=== PATIENT | male | born 1955 | race Caucasian/White ===

== ENCOUNTER 2025-05-31 18:55 | Emergency (ER) | payer MEDICARE, MEDICAID, SELFPAY ==
[2025-05-31] VITALS (15 sets, daily range): BP systolic 129–181; BP diastolic 79–118; PULSE 65–77; RESP 13–18; TEMP 36.8; O2SAT 95–99
--- NOTE | ~2025-05-31 | CT_ITS ---
EXAMINATION: CT brain kvng lei, 05/31/2025 20:05 CDT HISTORY: frequent falls, dysequilibrium COMPARISON: No comparisons available. Technique: Axial images obtained of the brain without contrast. One or more of the following dose reduction techniques were used: automated exposure control, adjustment of the mA and/or kV according to patient size, use of iterative reconstruction technique. Findings: No acute infarct or parenchymal hemorrhage. No abnormal mass or mass effect. No midline shift. No extra-axial fluid collections. No hydrocephalus. Mastoid air cells unremarkable. Sinuses and orbits unremarkable. No acute fracture. No significant facial or scalp soft tissue swelling evident. No radiopaque foreign body is seen. Impression: 1.No acute intracranial abnormality. Reviewed, dictated and finalized at location A. Impression: 1.No acute intracranial abnormality.
--- NOTE | ~2025-05-31 | CT_ITS ---
EXAMINATION: CT cervical spine wo quique, 05/31/2025 20:10 CDT HISTORY: neck pain AFTER FALL. COMPARISON: No comparisons available. Technique: Axial images were obtained of the spine per protocol. One or more of the following dose reduction techniques were used: automated exposure control, adjustment of the mA and/or kV according to patient size, use of iterative reconstruction technique. Unless otherwise stated, incidental findings do not require dedicated follow up imaging Findings: Grade 1 anterolisthesis of C3 on C4 and C4-C5, no fracture is identified. Severe loss of disc height at C2-3, C5-6 and C6-7 with moderate to severe canal and foraminal stenoses, outpatient MRI is recommended. Soft tissues unremarkable Impression: No acute abnormality. Reviewed, dictated and finalized at location A. Impression: No acute abnormality.
--- NOTE | ~2025-05-31 | XR_ITS ---
EXAMINATION: XR shoulder LT min 2V DATE: 05/31/2025 20:23 INDICATION: Superior left shoulder pain after fall TECHNIQUE: 5 images of the left shoulder were obtained COMPARISON: None FINDINGS: Normal alignment. No fracture. Glenohumeral joint is normal. Soft tissue swelling about the left shoulder. Questionable mild left AC separation. IMPRESSION: 1. No fracture. No dislocation of the left humeral head. Questionable mild left AC separation. Soft tissue swelling about the left shoulder. If symptoms persist or worsen, consider a short-term follow-up study or additional imaging for further assessment. Reviewed, dictated and finalized at location Q. IMPRESSION: 1. No fracture. No dislocation of the left humeral head. Questionable mild left AC separation. Soft tissue swelling about the left shoulder. If symptoms persist or worsen, consider a short-term follow-up study or additio nal imaging for further assessment.
--- NOTE | 2025-05-31 19:50 | ECG_ITS ---
Test Date: 2025-05-31 20:37:56 Measurements Intervals [place] Rate: 67 P: 79 WV: 137 QRS: 72 QRSD: 94 T: 81 QT: 399 QTc: 422 Interpretive Statements SINUS RHYTHM MODERATE VOLTAGE CRITERIA FOR LVH, CONSIDER NORMAL VARIANT [MEETS CRITERIA IN ONE OF: R(aVL), S(V1), R(V5), R(V5/V6)+S(V1)] No previous ECG available for comparison Electronically Signed On 06-01-2025 10:30:39 CDT by [place] De La Garza M.D.
--- NOTE | 2025-05-31 19:51 | ED_ITS ---
HPI - General Adult General Chief complaint: Fall Stated complaint: frequent falls Time Seen by Provider: 05/31/25 19:00 History of Present Illness HPI narrative: Taye is a 70M with a PMH of homelessness that presented to the ED with over a week of frequent falls. He feels off balance with a wide based gait and keeps falling. He has hit his head and shoulder multiple times. He denies any N/V, diarrhea, decreased PO intake, dyspnea or palpitations. Related Data Allergies Allergy/AdvReac Type Severity Reaction Status Date / Time No Known Allergies Allergy Verified 05/31/25 19:10 Review of Systems 2 Review of Systems: All systems reviewed & are unremarkable except as noted in HPI and below Exam 2 Narrative: Ordered labs, CT, and radiographs of the left shoulder. He declined pain meds. Const: General: cooperative, healthy appearing, comfortable, no acute distress, well developed, alert, awake and Physically active O rientation/consciousness: oriented to person, oriented to place and oriented to time Other: underweight HENMT: Head: normal to inspection, normocephalic and atraumatic Ears: h earing grossly normal bilaterally and external ears normal Face/Nose/Sinus: N ormal external nose present Eyes: General: appearance normal, both eyes and all related structures P eriorbital: periorbital findings normal Sclera: sclerae normal Pupils: E qual, round and reactive pupils present Neck: Neck: normal visual inspection Chest: Chest palpation & inspection: normal inspection of the chest Resp: Effort & Inspection: normal respiratory effort, able to speak in complete sentences and no respiratory distress Auscultation: clear to auscultation bilaterally Cardio: Jugular venous distension: no JVD Rate: regular rate Rhythm: r egular rhythm GI: Inspection: normal to inspection GI Palp: Yes Soft to palpation A uscultation: normal bowel sounds Skin: General skin exam: normal color and no rashes or lesions noted Neuro: General: oriented to person, oriented to place and oriented to time Cranial nerves: Yes Equal, round and reactive pupils present Other: HINTS exam: vertical nystagmus and eye correction Extrem: General: normal to inspection Course Course Emergency Course: Ordered CT brain, cervical spine and shoulder radiographs as well as labs and EKG EKG showed NSR with a rate of 67, normal axis, and no ST elevation/depression but did show LVH Labs largely unremarkable with the exception of a mildly elevated TSH. CT head -No acute intracranial abnormality CT C-Spine -No acute C-spine finding -Periodontal disease No acute cause was found for his dysequqlibrium. I recommended he f/u with his PCP for further workup and treatment. Vital Signs Vital signs: Vital Signs Temperature 98.3 F 05/31/25 18:55 Pulse Rate 76 05/31/25 18:55 Respiratory Rate 18 05/31/25 18:55 Blood Pressure 171/85 H 05/31/25 18:55 Pulse Oximetry 98 05/31/25 18:55 Temperature 98.3 F 05/31/25 18:55 Pulse Rate 73 05/31/25 22:31 Respiratory Rate 18 05/31/25 22:31 Blood Pressure 150/86 H 05/31/25 22:31 Pulse Oximetry 97 05/31/25 22:31 Oxygen Delivery Room Air 05/31/25 22:31 Medical Decision Making Vital Signs Vital Signs: Vital Signs Temperature 98.3 F 05/31/25 18:55 Pulse Rate 76 05/31/25 18:55 Respiratory Rate 18 05/31/25 18:55 Blood Pressure 171/85 H 05/31/25 18:55 Pulse Oximetry 98 05/31/25 18:55 Temperature 98.3 F 05/31/25 18:55 Pulse Rate 73 05/31/25 22:31 Respiratory Rate 18 05/31/25 22:31 Blood Pressure 150/86 H 05/31/25 22:31 Pulse Oximetry 97 05/31/25 22:31 Oxygen Delivery Room Air 05/31/25 22:31 Lab Data 05/31/25 20:40 05/31/25 20:40 Labs: Lab Results 05/31/25 05/31/25 Range/Units 20:04 20:40 WBC 10.0 (4.8-10.8) K/mm3 RBC 4.34 L (4.70-6.10) M/mm3 Hgb 12.9 (12.4-15.3) g/dL Hct 38.7 (37.0-46.0) % MCV 89.2 (78.0-102.0) fL MCH 29.7 (27.0-31.0) pg MCHC 33.3 (32-36) g/dL RDW 13.2 (11.6-14.4) % Plt Count 756 H (150-420) K/mm3 MPV 9.2 (8.7-11.0) fl Immature Gran % (Auto) 0.5 H (0.0-0.0) % Neut % (Auto) 75.2 H (50.0-70.0) % Lymph % (Auto) 12.4 L (18.0-42.0) % [place] % (Auto) 9.3 (2.0-11.0) % Eos % (Auto) 1.8 (1.0-6.0) % Baso % (Auto) 0.8 (0.0-1.0) % Lymph # (Auto) 1.24 (1.10-4.50) K/mm3 [place] # (Auto) 0.93 H (0.10-0.90) K/mm3 Eos # (Auto) 0.18 (0.02-0.50) K/mm3 Baso # (Auto) 0.08 (0.00-0.10) K/mm3 Abs Immat Gran (auto) 0.05 H (0.00-0.00) K/mm3 Absolute Neuts (auto) 7.53 H (1.70-7.20) K/mm3 Absolute Nucleated RBC 0.00 (0.00-0.00) K/mm3 Nucleated RBC % 0.0 (0-0.0) % % Immature Plt Fraction 1.3 (1.0-7.0) % Sodium 138 (137-145) mmol/L Potassium 4.6 (3.4-5.0) mmol/L Chloride 99 (98-107) mmol/L Carbon Dioxide 28 (22-30) mmol/L Anion Gap 11 (4-12) mmol/L BUN 21 H (9-20) mg/dL Creatinine 0.96 (0.7-1.3) mg/dL Estim Creat Clear Calc 59 ml/min Estimated GFR > 60 (59 - ) Glucose 101 (65-110) mg/dL Calculated Osmolality 289 (285-295) mOsm/kg Calcium 10.4 H (8.4-10.2) mg/dL Magnesium 2.0 (1.6-2.3) mg/dL Total Bilirubin 0.6 (0.2-1.3) mg/dL AST 38 (17-59) U/L ALT 22 (6-50) U/L Alkaline Phosphatase 88 (38-126) U/L Troponin I < 0.012 (0.000-0.034) ng/mL C-Reactive Protein 1.4 H (<1.0) mg/dL Total Protein 8.7 H (6.3-8.2) g/dL Albumin 4.7 (3.5-5.1) g/dL TSH 7.800 H (0.465-4.680) uIU/mL Urine Color Light yellow (Yellow) Urine Appearance Clear (Clear) Urine pH 6.5 (5.0-8.0) Ur Specific [place] 1.015 (1.010-1.020) Urine Protein Negative (Negative) Urine Glucose (UA) Negative (Negative) Urine Ketones Negative (Negative) Ur Blood (Man) Negative (Negative) Urine Nitrate Negative (Negative) Urine Bilirubin Negative (Negative) Urine Urobilinogen 0.2 (0.2-1.0) mg/dL Leukocyte Esterase Rfl Negative (Negative) EARL/UL Urine Opiates Screen Negative (Negative) Urine Methadone Screen Negative (Negative) Ur Barbiturates Screen Negative (Negative) Ur Phencyclidine Scrn Negative (Negative) Ur Amphetamine Screen Negative (Negative) U Benzodiazepines Scrn Negative (Negative) Urine Cocaine Screen Negative (Negative) U Cannabinoids Screen Positive A (Negative) Ethyl Alcohol < 10 (<10) mg/dL Discharge Plan Discharge Clinical Impression: Frequent falls Patient Disposition: Home Condition: Stable Instructions: Fall Prevention (ED) Additional Instructions: Please follow up with your regular provider for further workup. Your thyroid was a bit low and will need followed up on as well. Patient Language: Arabic Follow-up/Referrals: Mirtha Mayfield PA [Primary Care Provider, Orthopedics]
--- NOTE | 2025-05-31 20:00 | PC.NURSE ---
RESTING QUIETLY ON STRETCHER. NO NEEDS VOICED AT THIS TIME. CALL LIGHT IN REACH
--- NOTE | 2025-05-31 20:02 | PC.NURSE ---
LAB AT THE BEDSIDE
--- NOTE | 2025-05-31 20:18 | PC.NURSE ---
RESTING QUIETLY ON STRETCHER. NO NEEDS VOICED AT THIS TIME.
[2025-05-31 20:57] LABS: Hematocrit 38.7 % (37.0-46.0); Hemoglobin 12.9 g/dL (12.4-15.3); Immature Granulocyte Percent A 0.5 % (0.0-0.0); Immature Platelet Fraction Pct 1.3 % (1.0-7.0); Lymphocytes Absolute Auto 1.24 K/mm3 (1.10-4.50); Mean Corpuscular HGB Conc 33.3 g/dL (32-36); Mean Corpuscular Hemoglobin 29.7 pg (27.0-31.0); Mean Corpuscular Volume 89.2 fL (78.0-102.0); Nucleated Red Blood Cells Absolute Auto 0.00 K/mm3 (0.00-0.00); Nucleated Red Blood Cells Perc 0.0 % (0-0.0); Platelet Count Result 756 K/mm3 (150-420); Red Blood Count 4.34 M/mm3 (4.70-6.10); White Blood Count 10.0 K/mm3 (4.8-10.8)
--- NOTE | 2025-05-31 21:00 | PC.NURSE ---
PATIENT RESTING ON STRETCHER. CALL LIGHT IN REACH. NO NEEDS VOICED.
[2025-05-31 21:03] LABS: Add Urine Microscopic? NO; Appearance Urine Clear (Clear); Glucose Urine UA Negative (Negative); Leukocyte Esterase Ur Negative LEU/UL (Negative); Nitrate Urine Negative (Negative); Specific Grav Ur 1.015 (1.010-1.020)
[2025-05-31 21:03] LABS: Alanine Aminotransferase 22 U/L (6-50); Albumin Level 4.7 g/dL (3.5-5.1); Alkaline Phosphatase 88 U/L (38-126); Anion Gap 11 mmol/L (4-12); Aspartate Amino Transferase 38 U/L (17-59); Bilirubin,Total 0.6 mg/dL (0.2-1.3); Blood Urea Nitrogen 21 mg/dL (9-20); CRP 1.4 mg/dL (<1.0); Calcium 10.4 mg/dL (8.4-10.2); Carbon Dioxide 28 mmol/L (22-30); Chloride 99 mmol/L (98-107); Estimated CRCL calculation 59 ml/min; Estimated Glomerular Filt Rate > 60; Glucose 101 mg/dL (65-110); Magnesium 2.0 mg/dL (1.6-2.3); Osmolality Calculated 289 mOsm/kg (285-295); Potassium 4.6 mmol/L (3.4-5.0); Sodium 138 mmol/L (137-145); Total Protein 8.7 g/dL (6.3-8.2)
[2025-05-31 21:11] LABS: Troponin I < 0.012 ng/mL (0.000-0.034)
[2025-05-31 21:30] LABS: Cannabinoid Screen Urine Positive (Negative)
[2025-05-31 21:36] LABS: Thyroid Stimulating Hormone 7.800 uIU/mL (0.465-4.680)
--- NOTE | 2025-05-31 23:07 | PC.NURSE ---
ATTEMPTED TO CALL [facility] FOR PATIENT. NO ANSWER AT THIS TIME
== END 2025-05-31 22:47 | disposition home or self-care (01) ==
PROVIDERS: Emergency Provider Family Medicine; PCP Physician Assistant Surgical
DX: S09.90XA Unspecified injury of head, initial encounter (principal); S49.92XA Unspecified injury of left shoulder and upper arm, initial encounter; W19.XXXA Unspecified fall, initial encounter; E03.9 Hypothyroidism, unspecified; Z91.81 History of falling
CPT/HCPCS: 36415; 70450; 72125; 73030; 80053; 80307; 81003; 82077; 83735; 84443; 84484; 85025; 85055; 86140; 93005; 99284

== ENCOUNTER 2025-06-06 23:01 | Emergency (ER) | payer MEDICARE, SELFPAY ==
--- NOTE | ~2025-06-06 | XR_ITS ---
EXAMINATION: XR_RIBSBICXR1_CR, 06/06/2025 23:32 CDT HISTORY: Frequent falls, rib pain worse on left COMPARISON: No comparisons available. Findings: No acute fracture or malalignment. No significant degenerative changes. Soft tissues unremarkable. Impression: No acute fracture or malalignment. Reviewed, dictated and finalized at location A. Impression: No acute fracture or malalignment.
--- NOTE | ~2025-06-06 | XR_ITS ---
EXAMINATION: XR shoulder LT min 2V, 06/06/2025 23:32 CDT HISTORY: LEFT SHOULDER PAIN COMPARISON: No comparisons available. Findings: No acute fracture or malalignment. No significant degenerative changes. Soft tissues unremarkable. Impression: No acute fracture or malalignment. Reviewed, dictated and finalized at location A. Impression: No acute fracture or malalignment.
[2025-06-06 23:04] VITALS: BP 153/83; PULSE 92; RESP 20; TEMP 36.6; O2SAT 99
[2025-06-07 01:28] VITALS: BP 157/113; PULSE 84; RESP 18; O2SAT 96
--- NOTE | 2025-06-07 02:52 | ED_ITS ---
HPI - Fall General Chief Complaint: Fall Stated Complaint: Frequent falls, L rib pain Time Seen by Provider: 06/07/25 02:45 History of Present Illness HPI Narrative: Patient is a 70-year-old male who presents emergency department this evening complaining of left-sided rib pain. Patient states that a couple days ago he fell and landed days left side he does have some bruising to the left anterior chest. Patient is concerned that he may have a pneumothorax as the last time he broke a rib but the doctor told him that he was like that the refraction did not cause a pneumothorax. Patient is also complaining of left shoulder pain, however, is able to move his left shoulder without any difficulty. Patient is denying any shortness of breath, denies any chest pain with inspiration. Satting 99% on room air. Related Data Allergies Allergy/AdvReac Type Severity Reaction Status Date / Time No Known Allergies Allergy Verified 06/06/25 23:08 Review of Systems Review of Systems: All systems are reviewed and are negative unless stated otherwise in the HPI. Exam Narrative: General: Alert, awake, afebrile, in no acute distress. HEENT: PERRL, no rhinorrhea, no post nasal drip, oropharynx clear. Neck: Trachea midline, no JVD, no lymphadenopathy. Cardiovascular: Regular rate and rhythm, no murmurs, rubs or gallops, no peripheral edema, old bruising noted to the anterior left chest tender to touch. Respiratory: Clear to auscultation bilaterally, no tachypnea, no wheezing, no rhonchi, no rubs, no respiratory distress. Abdomen: Soft, nontender, nondistended, no rebound, no guarding, no peritoneal signs. Musculoskeletal: No joint swelling or deformity, normal muscle tone, intact full range of motion at the left shoulder joint although patient reports some pain with abduction past 90?. Skin: No rashes or petechia, no signs of infection. Psychiatric: Alert and oriented, normal behavior and judgment for situation. Neurological: Alert and oriented to person, place, and time. Follows all commands. No focal deficits, speech is clear and fluent. Course Vital Signs Vital signs: Vital Signs Temperature 97.8 F 06/06/25 23:04 Pulse Rate 92 06/06/25 23:04 Respiratory Rate 20 06/06/25 23:04 Blood Pressure 153/83 H 06/06/25 23:04 Pulse Oximetry 99 06/06/25 23:04 Oxygen Delivery Room Air 06/06/25 23:04 Temperature 97.8 F 06/06/25 23:04 Pulse Rate 84 06/07/25 01:28 Respiratory Rate 18 06/07/25 01:28 Blood Pressure 157/113 H 06/07/25 01:28 Pulse Oximetry 96 06/07/25 01:28 Oxygen Delivery Room Air 06/06/25 23:04 MDM - Fall MDM Narrative Medical decision making narrative: The patient was evaluated by myself in the emergency department. History is obtained from patient who is an independent historian and physical exam was performed. External medical records were reviewed at this time. Patient was administered Lidoderm patch and 15 mg of IM Toradol for pain. Imaging studies obtained included CXR and bilateral rib x-rays and left shoulder x-ray which was independently interpreted by me revealing no obvious rib fractures, no pneumothorax, which is pending final radiology interpretation. Differential diagnosis considerations include rib fractures, rib contusion, pneumothorax, musculoskeletal strain. Comorbidities impacting this visit include none. I have evaluated and discussed social determinants of health with the patient that could potentially impact subsequent diagnosis and treatment plans. On repeat assessment of the patient, reevaluation revealed that the patient is doing well and is in no acute distress. Patient symptoms have improved since he arrived to our emergency department. Repeat vital signs were all reviewed and noted to be stable. Differential diagnosis and treatment plan were discussed with the patient at bedside. Patient agrees with discussion and after shared medical decision making agrees with discharge. All questions were answered to the patient's satisfaction. Patient will follow up with his PCP in 3-5 days. Patient was provided with strict return precautions and instructed to return to the emergency department if any new or worsening symptoms develop. The patient was discharged in stable condition. Discharge Plan Discharge Clinical Impression: Rib pain on left side Patient Disposition: Home Condition: Improved Instructions: Antibiotic Form, Rib Contusion (ED) Additional Instructions: Please follow-up with the family doctor within the next 3-5 days. Return to the emergency department if any new or worsening symptoms develop. If you continue to have shoulder pain you may need an MRI of your left shoulder for further evaluation of any rotator cuff injury. Use ibuprofen and Tylenol as needed for pain. Patient Language: Cameroonian Follow-up/Referrals: PHYSICIAN NOT ON STAFF,NONSTAFF [Primary Care Provider] - 3 Days Melany Gifford DO [Physician, Family Practice] - 3 Days Time of Disposition: 02:52
[2025-06-07] MEDS: LIDOCAINE 5% PATCH 1 PATCH TRANSDERM (03:17)
[2025-06-07] MEDS: KETOROLAC 30 MG/ML VIAL (*BKC) 15 MG IM (03:17)
[2025-06-07 03:31] VITALS: BP 171/85; PULSE 65; RESP 18; O2SAT 100
== END 2025-06-07 03:32 | disposition home or self-care (01) ==
PROVIDERS: Emergency Provider Emergency Medicine
DX: R07.89 Other chest pain (principal); W19.XXXA Unspecified fall, initial encounter
CPT/HCPCS: 71111; 73030; 96372; 99284; A9270; J1885

== ENCOUNTER 2025-07-07 13:40 | Outpatient (CLI) | payer MEDICARE, SELFPAY ==
[2025-07-07 14:18] LABS: Hematocrit 42.4 % (37.0-46.0); Hemoglobin 14.6 g/dL (12.4-15.3); Immature Granulocyte Percent A 0.4 % (0.0-0.0); Lymphocytes Absolute Auto 1.09 K/mm3 (1.10-4.50); Mean Corpuscular HGB Conc 34.4 g/dL (32-36); Mean Corpuscular Hemoglobin 30.2 pg (27.0-31.0); Mean Corpuscular Volume 87.6 fL (78.0-102.0); Nucleated Red Blood Cells Absolute Auto 0.00 K/mm3 (0.00-0.00); Nucleated Red Blood Cells Perc 0.0 % (0-0.0); Platelet Count Result 398 K/mm3 (150-420); Red Blood Count 4.84 M/mm3 (4.70-6.10); White Blood Count 8.2 K/mm3 (4.8-10.8)
[2025-07-07 14:37] LABS: Alanine Aminotransferase 23 U/L (6-50); Albumin Level 4.6 g/dL (3.5-5.1); Alkaline Phosphatase 71 U/L (38-126); Anion Gap 10 mmol/L (4-12); Aspartate Amino Transferase 30 U/L (17-59); Bilirubin,Total 0.9 mg/dL (0.2-1.3); Blood Urea Nitrogen 25 mg/dL (9-20); Calcium 10.0 mg/dL (8.4-10.2); Carbon Dioxide 29 mmol/L (22-30); Chloride 102 mmol/L (98-107); Cholesterol 190 mg/dL (0-200); Estimated Glomerular Filt Rate > 60; Glucose 136 mg/dL (65-110); HDL Direct 77 mg/dL; Osmolality Calculated 298 mOsm/kg (285-295); Potassium 3.9 mmol/L (3.4-5.0); Sodium 141 mmol/L (137-145); Total Protein 8.7 g/dL (6.3-8.2); Triglycerides 90 mg/dL (<150)
[2025-07-07 14:38] LABS: Hemoglobin A1C 5.6 % (<5.7)
[2025-07-07 15:08] LABS: Thyroid Stimulating Hormone 3.650 uIU/mL (0.465-4.680)
[2025-07-07 15:44] LABS: Vitamin B12 532.0 pg/mL (239-931)
== END 2025-07-07 13:41 | disposition home or self-care (01) ==
LOC: CHSLAB 14:02
PROVIDERS: PCP Family Medicine; Visit Provider Family Medicine
DX: I25.10 Atherosclerotic heart disease of native coronary artery without angina pectoris (principal); R41.82 Altered mental status, unspecified; Z13.1 Encounter for screening for diabetes mellitus; Z79.899 Other long term (current) drug therapy
CPT/HCPCS: 36415; 80053; 80061; 82306; 82607; 82746; 83036; 84443; 85025

== ENCOUNTER 2025-07-08 10:53 | Outpatient (CLI) | payer MEDICARE, MEDICAID, SELFPAY ==
--- NOTE | ~2025-07-08 | XR_ITS ---
EXAMINATION: XR shoulder LT min 2V, 07/08/2025 11:10 CDT HISTORY: L SHOULDER PAIN, PAIN OF RIGHT CLAVICLE, LUMBAR BACK PAIN, COMPARISON: No comparisons available. Findings: No acute fracture or malalignment. Moderate degenerative changes Soft tissues unremarkable. Impression: No acute fracture or malalignment. Reviewed, dictated and finalized at location P. Impression: No acute fracture or malalignment.
--- NOTE | ~2025-07-08 | XR_ITS ---
EXAMINATION: XR clavicle RT, 07/08/2025 11:10 CDT HISTORY: L SHOULDER PAIN, PAIN OF RIGHT CLAVICLE, LUMBAR BACK PAIN, COMPARISON: No comparisons available. Findings: Healing fracture mid clavicle with callus formation. Moderate degenerative changes of the acromial clavicular joint. Soft tissues unremarkable. Impression: Remote appearing clavicle fracture however there is evidence of healing suggesting superimposed acute fracture versus ongoing healing. Clinical correlation is required Reviewed, dictated and finalized at location P. Impression: Remote appearing clavicle fracture however there is evidence of healing suggest ing superimposed acute fracture versus ongoing healing. Clinical correlation is required
--- NOTE | ~2025-07-08 | XR_ITS ---
XR lumbar spine 2-3V Indication: L SHOULDER PAIN, PAIN OF RIGHT CLAVICLE, LUMBAR BACK PAIN, Comparison: None Findings: The vertebral heights are intact. No fracture or subluxation. The disc heights are intact. Soft tissues unremarkable Impression: No acute abnormality. Reviewed, dictated and finalized at location P. Impression: No acute abnormality.
--- NOTE | ~2025-07-08 | XR_ITS ---
XR_CERV2-3V_CR Indication: L SHOULDER PAIN, PAIN OF RIGHT CLAVICLE, LUMBAR BACK PAIN, Comparison: None Findings: Grade 1 anterolisthesis of C3-4 on C5, no fracture. Moderate loss of disc height throughout with severe loss of disc height at C5-6 and C6-7. Soft tissues unremarkable Impression: No acute abnormality. Reviewed, dictated and finalized at location P. Impression: No acute abnormality.
== END 2025-07-08 10:54 | disposition home or self-care (01) ==
LOC: CHSIMG 10:55
PROVIDERS: PCP Family Medicine; Visit Provider Family Medicine
DX: M25.512 Pain in left shoulder (principal); M89.8X1 Other specified disorders of bone, shoulder; M54.50 Low back pain, unspecified; M54.12 Radiculopathy, cervical region; S42.021D Displaced fracture of shaft of right clavicle, subsequent encounter for fracture with routine healing
CPT/HCPCS: 72040; 72100; 73000; 73030

== ENCOUNTER 2025-07-20 16:29 | Emergency (ER) | payer MEDICARE, SELFPAY ==
--- NOTE | ~2025-07-20 | XR_ITS ---
EXAMINATION: XR chest 1V portable COMPARISON: No comparisons available. HISTORY: sob FINDINGS: The lungs are clear, no effusion. No pneumothorax. Heart is normal size. Mediastinal and hilar contours are within normal limits. Bony thorax no acute abnormality. Miscellaneous: None Impression: No acute cardiopulmonary abnormality. Reviewed, dictated and finalized at location P. Impression: No acute cardiopulmonary abnormality.
--- NOTE | ~2025-07-20 | CT_ITS ---
EXAMINATION: CT brain wo quique, 07/20/2025 16:40 CDT HISTORY: Fall COMPARISON: No comparisons available. Technique: Axial images obtained of the brain without contrast. One or more of the following dose reduction techniques were used: automated exposure control, adjustment of the mA and/or kV according to patient size, use of iterative reconstruction technique. Findings: No acute infarct or parenchymal hemorrhage. No abnormal mass or mass effect. No midline shift. No extra-axial fluid collections. No hydrocephalus. Mastoid air cells unremarkable. Sinuses and orbits unremarkable. No acute fracture. No significant facial or scalp soft tissue swelling evident. No radiopaque foreign body is seen. Impression: 1.No acute intracranial abnormality. Reviewed, dictated and finalized at location P. Impression: 1.No acute intracranial abnormality.
--- NOTE | 2025-07-20 16:45 | ECG_ITS ---
Test Date: 2025-07-20 16:54:29 Measurements Intervals [place] Rate: 74 P: 53 DC: 136 QRS: 85 QRSD: 94 T: 96 QT: 393 QTc: 438 Interpretive Statements SINUS RHYTHM DELAYED PRECORDIAL R/S TRANSITION BORDERLINE ST-T WAVE ABNORMALITY- INFERIOR LEADS BASELINE ARTIFACT- I, II, III, AVR, AVL, AVF, V1-V6 BORDERLINE ECG Compared to ECG 05/31/2025 20:37:56 NO SIGNIFICANT CHANGE Electronically Signed On 07-20-2025 19:56:22 CDT by Gerardo Mccormick D.O.
--- NOTE | 2025-07-20 16:45 | ED_ITS ---
HPI - Fall General Chief Complaint: Fall Stated Complaint: Fall Time Seen by Provider: 07/20/25 16:45 Source: patient, family and EMS Mode of arrival: EMS Limitations: no limitations History of Present Illness HPI Narrative: Patient is a 70-year-old male with a planned surgery tomorrow for his right shoulder with a fracture known and a rotator cuff tear. He is here for generalized weakness complaint. He also has many social issues that need to be addressed but his surgery is very important to get done according to the water treatment technician present. He was sent here by EMS for an evaluation when they came to his house after a fall. They would like him to have a workup and make sure that he was okay. No major complaints at this time. He does complain of general weakness and right shoulder/upper extremity is not working due to a known fracture and rotator cuff tear. Patient has chronic social issues according to the water treatment technician. He is getting to food at this time and help with his ADLs by the water treatment technician. We discussed that he probably will get sent to a rehab after his shoulder surgery tomorrow. Patient had a stroke in the past year with residual weakness as well. All in all, he has chronic weakness and chronic social issues and chronic right shoulder problems. Plans to have surgery repair of his right shoulder tomorrow. complaint: fall Onset (ago): year(s) Fall from: standing Fall witnessed: no Place fall occurred: home Loss of consciousness: none Prolonged down time: yes and hour(s) Symptoms prior to fall: none Context: tripped/slipped Location of injury: other (No general injuries according to the patient said with; Right shoulder is chronic and plans for surgery tomorrow) Severity: moderate Severity scale (1-10): 4 Quality: sharp (Right shoulder with known fracture and rotator cuff tear with surgery plans tomorrow) Associated symptoms (after fall): denies Related Data Allergies Allergy/AdvReac Type Severity Reaction Status Date / Time No Known Allergies Allergy Verified 07/20/25 16:37 Review of Systems 2 Review of Systems: All systems reviewed & are unremarkable except as noted in HPI and below Constitutional: Constitutional: Reports no additional constitutional complaints Eyes: Eyes: Reports no additional eye complaints ENT: Reports system reviewed and no additional complaints, except as documented Cardiovascular: Cardiovascular: Reports no additional cardiovascular complaints Respiratory: Respiratory: Reports no additional respiratory complaints Gastrointestinal: Gastrointestinal: Reports no additional gastrointestinal complaints Genitourinary: Genitourinary: Reports no additional male genitourinary complaints Musculoskeletal: Musculoskeletal: Reports no additional musculoskeletal complaints Integumentary/Breasts: Skin/Breast: Reports system reviewed and no additional complaints, except as docu Neurologic: Reports system reviewed and no additional complaints, except as documented Psychiatric: Psychiatric: Reports no additional psychiatric complaints Endocrine: Endocrine: Reports no additional endocrine complaints Hematologic/Lymphatic: Hematologic/Lymphatic: Reports no additional hematologic/lymphatic complaints Allergic/Immunologic: Allergic/Immunologic: Reports no additional allergic/immunologic complaints Exam 2 Const: General: healthy appearing Nutritional Appearance: well nourished Orientation/consciousness: patient oriented x3 HENMT: Head: normal to inspection, no contusions and no hematomas Eyes: Conjunctivae: conjunctivae normal Pupils: Equal, round and reactive pupils present EOM: EOMs intact bilaterally Neck: Neck: normal visual inspection, no lymphadenopathy and no meningeal signs Chest: Chest palpation & inspection: normal inspection of the chest Resp: Effort & Inspection: normal respiratory effort and not labored A uscultation: clear to auscultation bilaterally and no crackles Cardio: Rate: regular rate Rhythm: regular rhythm Heart sounds: no murmurs GI: Inspection: non-distended GI Palp: Yes Soft to palpation and No Tenderness to palpation present (GI) Auscultation: normal bowel sounds : General: Yes bladder normal to palpation Back/Spine/Pelvis: Back: no CVA tenderness Skin: General skin exam: normal color Rashes: no rashes Wounds: no wounds Neuro: General: patient oriented x3, moves all extremities, no meningeal signs, no focal motor deficits and CN's II-XI intact bilaterally Cranial nerves: Yes Nystagmus not present Speech: normal speech Gait exam (Neuro): gait abnormal (Baseline gait pattern with using assisted devices) Other: Fast exam was negative for acute changes, NIH score for acute changes was 0, GCS was 15 Extrem: General: normal to inspection, no clubbing, cyanosis or edema and no pedal edema Psych: Mental Status: mental status grossly normal Affect: normal affect Attitude: cooperative Other: Awake alert oriented x4 Course Vital Signs Vital signs: Vital Signs Temperature 36.1 C L 07/20/25 16:52 Pulse Rate 79 07/20/25 16:52 Respiratory Rate 16 07/20/25 16:52 Blood Pressure 133/79 07/20/25 16:52 Pulse Oximetry 99 07/20/25 16:52 Oxygen Delivery Room Air 07/20/25 16:52 Temperature 36.1 C L 07/20/25 16:52 Pulse Rate 79 07/20/25 16:52 Respiratory Rate 16 07/20/25 16:52 Blood Pressure 133/79 07/20/25 16:52 Pulse Oximetry 99 07/20/25 16:52 Oxygen Delivery Room Air 07/20/25 16:52 MDM - Fall MDM Narrative Medical decision making narrative: Patient is a 70-year-old male with many chronic issues this evening and generalized weakness which is also chronic. We will do a general workup for fall and weakness but I explained that he has many needs that the primary doctor and his orthopedic surgeon tomorrow can assist with may be getting him into a long-term facility. No new findings this evening and chronic changes only discussed and seen. Dairy Farmer agreed everything is chronic for this patient. Patient is here with a water treatment technician and he is going to take him home tonight with a safe environment. He is going to take him to surgery tomorrow. They will further discuss after surgery about long-term rehab possibilities. All in all, patient has all chronic issues at this evening and social issues. He has a safe place to go this evening and a water treatment technician. It is very important that he get the surgery done tomorrow. Lab Data Attestation: I reviewed the patient's lab results. 07/20/25 17:05 07/20/25 17:05 Labs: Lab Results 07/20/25 07/20/25 Range/Units 17:05 19:12 WBC 5.8 (4.8-10.8) K/mm3 RBC 4.20 L (4.70-6.10) M/mm3 Hgb 12.5 (12.4-15.3) g/dL Hct 38.1 (37.0-46.0) % MCV 90.7 (78.0-102.0) fL MCH 29.8 (27.0-31.0) pg MCHC 32.8 (32-36) g/dL RDW 14.6 H (11.6-14.4) % Plt Count 336 (150-420) K/mm3 MPV 9.7 (8.7-11.0) fl Immature Gran % (Auto) 0.3 H (0.0-0.0) % Neut % (Auto) 71.5 H (50.0-70.0) % Lymph % (Auto) 15.7 L (18.0-42.0) % [place] % (Auto) 10.6 (2.0-11.0) % Eos % (Auto) 0.9 L (1.0-6.0) % Baso % (Auto) 1.0 (0.0-1.0) % Lymph # (Auto) 0.90 L (1.10-4.50) K/mm3 [place] # (Auto) 0.61 (0.10-0.90) K/mm3 Eos # (Auto) 0.05 (0.02-0.50) K/mm3 Baso # (Auto) 0.06 (0.00-0.10) K/mm3 Abs Immat Gran (auto) 0.02 H (0.00-0.00) K/mm3 Absolute Neuts (auto) 4.11 (1.70-7.20) K/mm3 Absolute Nucleated RBC 0.00 (0.00-0.00) K/mm3 Nucleated RBC % 0.0 (0-0.0) % PT 10.8 (9.50-12.1) Seconds INR 1.0 APTT 26.8 (23.9-30.70) Sec Sodium 140 (137-145) mmol/L Potassium 4.1 (3.4-5.0) mmol/L Chloride 107 (98-107) mmol/L Carbon Dioxide 26 (22-30) mmol/L Anion Gap 7 (4-12) mmol/L BUN 21 H (9-20) mg/dL Creatinine 0.58 L (0.7-1.3) mg/dL Estim Creat Clear Calc Not Reportable Estimated GFR > 60 (59 - ) Glucose 88 (65-110) mg/dL Calculated Osmolality 292 (285-295) mOsm/kg Lactic Acid 0.9 (0.4-2.0) mmol/L Calcium 9.0 (8.4-10.2) mg/dL Total Bilirubin 0.7 (0.2-1.3) mg/dL AST 25 (17-59) U/L ALT 17 (6-50) U/L Alkaline Phosphatase 69 (38-126) U/L Total Creatine Kinase 141 (55-170) U/L Troponin I < 0.012 (0.000-0.034) ng/mL Total Protein 6.8 (6.3-8.2) g/dL Albumin 3.8 (3.5-5.1) g/dL Urine Color Yellow (Yellow) Urine Appearance Clear (Clear) Urine pH 6.5 (5.0-8.0) Ur Specific [place] 1.020 (1.010-1.020) Urine Protein Negative (Negative) Urine Glucose (UA) Negative (Negative) Urine Ketones Negative (Negative) Ur Blood (Man) Negative (Negative) Urine Nitrate Negative (Negative) Urine Bilirubin Negative (Negative) Urine Urobilinogen 1.0 (0.2-1.0) mg/dL Leukocyte Esterase Rfl Negative (Negative) EARL/UL Imaging Data Attestation: I personally reviewed and interpreted this imaging study as follows: Radiologist's impression: Chest x-rays negative for acute process CT scan head is negative for acute process Discharge Plan Discharge Clinical Impression: Weakness Patient Disposition: Home Condition: Stable Instructions: Weakness (ED) Patient Language: Paraguayan Follow-up/Referrals: Loyda,Poonam Brenner MD [Primary Care Provider, Unknown] Time of Disposition: 19:34
[2025-07-20 16:52] VITALS: BP 133/79; PULSE 79; RESP 16; TEMP 36.1; O2SAT 99
[2025-07-20] MEDS: SODIUM CHLORIDE 0.9% IV 1,000 ML 999 ML IV CONT (17:01)
[2025-07-20 17:11] LABS: Hematocrit 38.1 % (37.0-46.0); Hemoglobin 12.5 g/dL (12.4-15.3); Immature Granulocyte Percent A 0.3 % (0.0-0.0); Lymphocytes Absolute Auto 0.90 K/mm3 (1.10-4.50); Mean Corpuscular HGB Conc 32.8 g/dL (32-36); Mean Corpuscular Hemoglobin 29.8 pg (27.0-31.0); Mean Corpuscular Volume 90.7 fL (78.0-102.0); Nucleated Red Blood Cells Absolute Auto 0.00 K/mm3 (0.00-0.00); Nucleated Red Blood Cells Perc 0.0 % (0-0.0); Platelet Count Result 336 K/mm3 (150-420); Red Blood Count 4.20 M/mm3 (4.70-6.10); White Blood Count 5.8 K/mm3 (4.8-10.8)
--- OUTSIDE RECORDS SUMMARY | 2025-07-20 17:16 | XMS_ITS | Clinical Summary ---
Author Organization [facility] Address [address] [place] [id number] Care Team Providers Care Product Analyst Name Role Phone Poonam Scales MD Primary Care Provider [phone]- [phone] Encounters Date Type Department Care Team Description 07/17/[address] [address] Bryant Monge DO Appointment Request from Last 3 Months Social History Tobacco Use Types Packs/Day Years Used Date Smoking Tobacco: Never Assessed Sex and Gender Information Value Date Recorded Sex Assigned at Male 07/17/2025 12:45 PM CDT Legal Sex Male 9:24 PM CDT Gender Identity Not on file Sexual Orientation Not on file Last Filed Vital Signs Vital Sign Reading Time Taken Comments Blood Pressure 130/83 11/03/2013 10:12 AM ENTERTAINMENT USHER Pulse - - Temperature - - Respiratory Rate - - Oxygen Saturation - - Inhaled Oxygen Concentration - - Weight 71.3 kg (157 lb 4 oz) 11/03/2013 10:12 AM ENTERTAINMENT USHER Height 170.2 cm (5' 7) 11/03/2013 10:12 AM ENTERTAINMENT USHER Body Mass Index 24.63 11/03/2013 10:12 AM ENTERTAINMENT USHER Plan of Treatment Upcoming Encounters Date Type Department Care Team (Late st Contact Info) Description 07/21/2025 Orders Only [address] [id number] Bryant Monge DO [address] [place] [address] 07/21/2025 11:00 AM CDT Office Visit [address] [place] [address] Bryant Monge DO [address] [place] [address] Health Maintenance Due Date Last Done Comments Colorectal Cancer Screening Colonoscopy (10 Years) 1955 Hepatitis C 1973 DTaP, Tdap and Td Vaccines ( 1 - Tdap) 1974 Pneumococcal Vaccine: 50+ Ye ars (1 of 1 - PCV) 2005 Zoster Vaccines (1 of 2) 2005 Annual Medicare Wellness Visit 2020 COVID-19 Vaccine (1 - 2024-2 6 season) 2025 Influenza Adult (#1) 2025 RSV Immunization or 60+ Years (1 - 1-dose 75+ series) 2030 Hepatitis A Vaccines Aged Out No long er eligible based on patient's age to complete this topic Meningococcal B Vaccine Aged Out No l onger eligible based on patient's age to complete this topic Meningococcal Vaccine Aged Out No jacki kamala eligible based on patient's age to complete this topic RSV Immunizations Under 20 Months Aged Out No longer eligible based on patient's age to complete this topic Insurance [facility] MEDICARE Care Teams Product Analyst Relationship Specialty Start Date End Date Poonam Scales MD [address] [place] [phone] PCP - General FAMILY PRACTICE 07/17/25
--- OUTSIDE RECORDS SUMMARY | 2025-07-20 17:16 | XMS_ITS | Encounter Summary ---
Author Organization [facility] Address [facility] [place] [address] Care Team Providers Care Gradall Operator Name Role Phone Poonam Scales MD Primary Care Provider [phone]- [phone] Reason for Visit * Reason Onset Date Comments Appointment Request 07/17/2025 Encounter Details Date Type Department Care Team (Late st Contact Info) Description 07/17/[address] [address] Bryant Monge DO [address] [place] [address] Appointment Request Social History Tobacco Use Types Packs/Day Years Used Date Smoking Tobacco: Never Assessed Sex and Gender Information Value Date Recorded Sex Assigned at Male 07/17/2025 12:45 PM CDT Legal Sex Male 9:24 PM CDT Gender Identity Not on file Sexual Orientation Not on file documented as of this encounter Progress Notes * JULIA Santiago - 07/20/2025 7:53 AM CDT Xrays pushed from [facility] to [facility] to [facility]. X-ray report in media. Concerns for acute on chronic RIGHT clavicle fracture. Obtain new x-rays at time of upcoming apt. * JULIA Santiago - 07/17/2025 12:20 PM CDT PCP contacted the office for an apt. Patient has a RIGHT clavicle fracture DOI: 2 weeks ago. Patient ambulates with the a walker. He is not in any type of sling. PCP will fax referral. Xrays done at [facility]. documented in this encounter Plan of Treatment Upcoming Encounters Date Type Department Care Team (Late st Contact Info) Description 07/21/2025 Orders Only [address] [address] Bryant Monge, DO [address] [place] [id number] 07/21/2025 11:00 AM CDT Office Visit [address] [address] [place] [address] [place] [id number] documented as of this encounter Visit Diagnoses Not on filedocumented in this encounter Care Teams Gradall Operator Relationship Specialty Start Date End Date Poonam Scales MD [address] [place] [phone] PCP - General FAMILY PRACTICE 07/17/25 documented as of this encounter
[2025-07-20 17:24] LABS: Alanine Aminotransferase 17 U/L (6-50); Albumin Level 3.8 g/dL (3.5-5.1); Alkaline Phosphatase 69 U/L (38-126); Anion Gap 7 mmol/L (4-12); Aspartate Amino Transferase 25 U/L (17-59); Bilirubin,Total 0.7 mg/dL (0.2-1.3); Blood Urea Nitrogen 21 mg/dL (9-20); Calcium 9.0 mg/dL (8.4-10.2); Carbon Dioxide 26 mmol/L (22-30); Chloride 107 mmol/L (98-107); Creatine Kinase 141 U/L (55-170); Estimated Glomerular Filt Rate > 60; Glucose 88 mg/dL (65-110); Osmolality Calculated 292 mOsm/kg (285-295); Potassium 4.1 mmol/L (3.4-5.0); Sodium 140 mmol/L (137-145); Total Protein 6.8 g/dL (6.3-8.2)
[2025-07-20 17:34] LABS: INR 1.0; Partial Thromboplastin Time 26.8 Sec (23.9-30.70); Prothrombin Time 10.8 Seconds (9.50-12.1)
[2025-07-20 17:35] LABS: Troponin I < 0.012 ng/mL (0.000-0.034)
--- NOTE | 2025-07-20 18:49 | PC.NURSE ---
Pt manuscript reader in room with pt at this time.
--- NOTE | 2025-07-20 19:05 | PC.NURSE ---
Assumed care of pt at this time. Pt unable to void for needed UA. Will straight cath pt.
[2025-07-20 19:17] LABS: Add Urine Microscopic? NO; Appearance Urine Clear (Clear); Glucose Urine UA Negative (Negative); Leukocyte Esterase Ur Negative LEU/UL (Negative); Nitrate Urine Negative (Negative); Specific Grav Ur 1.020 (1.010-1.020)
--- NOTE | 2025-07-20 19:19 | PC.NURSE ---
Pt tolerated straight cath well. 200 mL kely urine returned and sent to lab. Pt requests sandwich and juice. ERP states pt may eat. [place] and juice provided. Visitor remains at bedside. Side rails up x 2. Call light in reach.
--- NOTE | 2025-07-20 19:45 | PC.NURSE ---
Friend/neighbor states pt will be going home with him tomorrow and will be going to surgery tomorrow morning at 1100 hours for his shoulder. No new complaints at this time. Friend reports that pt's family has been reluctant to provide assistance with ADLs at home pt reports siblings live in the [facility] and has no reliable family member close to assist him. ERP at bedside pt and pt's friend encouraged to speak with [facility] team about rehabilitation post-op. Pt and friend are agreeable that additional resources will possibly be needed post-op to ensure successful rehab and gain as much independence after surgery. Pt reports he has had limited movement of the right upper extremity post previous fall and this surgery's goal is to allow for increased use. Pt reports previous strokes have affected his legs and uses walker.
[2025-07-20 19:50] VITALS: BP 123/88; PULSE 81; RESP 18; TEMP 36.6; O2SAT 100
== END 2025-07-20 19:50 | disposition home or self-care (01) ==
PROVIDERS: Emergency Provider Emergency Medicine; PCP Family Medicine
DX: R53.1 Weakness (principal); S42.91XD Fracture of right shoulder girdle, part unspecified, subsequent encounter for fracture with routine healing; W01.0XXD Fall on same level from slipping, tripping and stumbling without subsequent striking against object, subsequent encounter
CPT/HCPCS: 36415; 70450; 71045; 80053; 81003; 82550; 83605; 84484; 85025; 85610; 85730; 93005; 96360; 99284; J7030